=== PATIENT | female | born 1980 | race Two or more races ===

== ENCOUNTER 2020-06-03 12:29 | Day surgery (SDC) | payer SELFPAY ==
[2020-06-03] MEDS ORDERED: Lidocaine 1% 4 ML ONE (12:45)
[2020-06-03] MEDS ORDERED: Lactated Ringers 1,000 ML IV SCH (12:45)
[2020-06-03] MEDS ORDERED: Rocuronium 50 MG/5 ML Vial ONE (12:45)
[2020-06-03] MEDS ORDERED: fentaNYL 250 MCG/5 ML SDV ONE (12:45)
[2020-06-03] MEDS ORDERED: Ondansetron 4 MG/2 ML SDV ONE ×2 (12:45→14:23)
[2020-06-03] MEDS ORDERED: Midazolam 1 MG/ML 2 ML SDV ONE (12:45)
[2020-06-03] MEDS ORDERED: Propofol 200 MG/20 ML SDV ONE (12:46)
--- NOTE | 2020-06-03 13:05 | PCM.PREANE ---
Preanesthetic Assessment - Procedure Proposed Procedure: lap appy - Anesthesia/Transfusion/Family Hx Anesthesia History: Prior Anesthesia Without Reaction Family History of Anesthesia Reaction: No Transfusion History: No Prior Transfusion(s) - Review of Systems General: Fever (weekend- temp 100) Pulmonary: No Symptoms Cardiovascular: No Symptoms Gastrointestinal: Abdominal Pain (since wednesday. ), Decreased Appetite, Vomiting (for 2 days- none yesterday) Neurological: No Symptoms Other: Reports: None - Physical Assessment NPO Status Date: 06/03/20 NPO Status Time: 11:30 (16 oz water-otherwise npo) Vital Signs: 115/88 95 100% 16 99.4 Height: 5 ft 6 in Weight: 71.7 kg ASA Class: 1E Mental Status: Alert & Oriented x3 Airway Class: Mallampati = 1 Dentition: Reports: Normal Dentition Thyro-Mental Finger Breadths: 3 Mouth Opening Finger Breadths: 3 ROM/Head Extension: Full Lungs: Clear to Auscultation, Normal Respiratory Effort Cardiovascular: Regular Rate, Regular Rhythm - Blood Blood Available: No - Acknowledgements Anesthesia Type Planned: General Anesthesia Pt an Appropriate Candidate for the Planned Anesthesia: Yes Alternatives and Risks of Anesthesia Discussed w Pt/Guardian: Yes Pt/Guardian Understands and Agrees with Anesthesia Plan: Yes PreAnesthesia Questionnaire Cardiovascular History: Reports: None Respiratory History: Reports: None Gastrointestinal History: Reports: Other (See Below) (abd pain this weekend) Musculoskeletal History: Reports: None Psychiatric History: Reports: None Endocrine/Metabolic History: Reports: None Oncologic (Cancer) History: Reports: None - Past Surgical History Female Surgical History: Reports: Section (times 2) - SUBSTANCE USE Tobacco Use Status *Q: Never Tobacco User Tobacco Use Within Last Twelve Months: No Second Hand Smoke Exposure: No Days Per Week of Alcohol Use: 0 Recreational Drug Use History: No - CURRENT (IN HOUSE) MEDS Current Meds: Current Medications Discontinued Medications Fentanyl (Sublimaze) Confirm Administered Dose 250 mcg .ROUTE .STK-MED ONE Stop: 06/03/20 12:46 Lidocaine HCl (Xylocaine-Mpf 1%) Confirm Administered Dose 4 mls @ as directed .ROUTE .STK-MED ONE Stop: 06/03/20 12:46 Midazolam HCl (Versed 1 Mg/Ml) Confirm Administered Dose 2 mg .ROUTE .STK-MED ONE Stop: 06/03/20 12:46 Ondansetron HCl (Zofran) Confirm Administered Dose 4 mg .ROUTE .STK-MED ONE Stop: 06/03/20 12:46 Propofol (Diprivan 20 Ml) Confirm Administered Dose 200 mg .ROUTE .STK-MED ONE Stop: 06/03/20 12:47 Rocuronium Luke (Zemuron) Confirm Administered Dose 50 mg .ROUTE .STK-MED ONE Stop: 06/03/20 12:46
[2020-06-03] MEDS ORDERED: Sodium Chloride 0.9% 10 ML Syringe FLUSH PRN (13:11)
[2020-06-03] MEDS ORDERED: Citric Acid/Sodium Citrate Solution 30 ML Cup ONE (13:11)
[2020-06-03] MEDS ORDERED: Metoclopramide 10 MG/2 ML SDV ONE (13:11)
[2020-06-03] MEDS ORDERED: Bupivacaine 0.5%/EPINEPHrine 1:200,000 50 ML MDV ONE (13:13)
[2020-06-03] MEDS ORDERED: cefOXitin 2 GM in Premix Bag 1 BAG IV ONE (13:30)
--- NOTE | 2020-06-03 13:39 | PCM.HP.2 ---
H&P History of Present Illness - General Date of Service: 06/03/20 Admit Problem/Dx: appendicitis Source of Information: Patient History Limitations: Reports: No Limitations - History of Present Illness Initial Comments - Free Text/Narative: Mrs. Ny is sent from [facility] today with findings of acute appendicitis. She developed abdominal pain three days ago which has gotten worse over the weekend. She reports low grade fever, anorexia, nausea, and pain in the lower abdomen. She has never had this pain before. She is otherwise healthy; surgical history significant only for Caesarian section. WBC 14.[address] scan shows appendicitis without free fluid or abscess. - Related Data Allergies/Adverse Reactions: Allergies Allergy/AdvReac Type Severity Reaction Status Date / Time No Known Allergies Allergy Verified 06/03/20 13:10 Home Medications: Home Meds . [No Known Home Meds] 06/03/20 [History] Past Medical History - Past Health History Medical/Surgical History: Denies Medical/Surgical History Cardiovascular History: Reports: None Respiratory History: Reports: None Gastrointestinal History: Reports: Other (See Below) (abd pain this weekend) Musculoskeletal History: Reports: None Psychiatric History: Reports: None Endocrine/Metabolic History: Reports: None Oncologic (Cancer) History: Reports: None - Past Surgical History Female Surgical History: Reports: Section (times 2) Social & Family History - Tobacco Use Tobacco Use Status *Q: Never Tobacco User Second Hand Smoke Exposure: No - Caffeine Use Caffeine Use: Reports: Coffee - Alcohol Use Days Per Week of Alcohol Use: 0 - Recreational Drug Use Recreational Drug Use: No H&P Review of Systems - Review of Systems: Review Of Systems: See Below General: Reports: Fever, Malaise HEENT: Reports: No Symptoms Pulmonary: Reports: No Symptoms Cardiovascular: Reports: No Symptoms Gastrointestinal: Reports: Abdominal Pain, Anorexia, Decreased Appetite, Flatus, Nausea Genitourinary: Reports: No Symptoms Musculoskeletal: Reports: No Symptoms Skin: Reports: No Symptoms Psychiatric: Reports: No Symptoms Neurological: Reports: No Symptoms Hematologic/Lymphatic: Reports: No Symptoms Immunologic: Reports: No Symptoms Exam - Exam Exam: See Below - Vital Signs Vital Signs: Last Vital Signs Temp 37.4 C 06/03/20 12:45 Pulse 95 06/03/20 12:45 Resp 16 06/03/20 12:45 BP 115/88 06/03/20 12:45 Pulse Ox 100 06/03/20 12:45 Weight: 71.7 kg - Exam General: Alert, Oriented, Cooperative HEENT: Conjunctiva Clear Neck: Supple, Trachea Midline Lungs: Clear to Auscultation, Normal Respiratory Effort Cardiovascular: Regular Rate, Regular Rhythm GI/Abdominal Exam: Soft, No Mass, Tender, Other (McBurney point tenderness) Extremities: Normal Inspection Skin: Warm, Dry Neuro Extensive - Mental Status: Alert, Oriented x3 Psychiatric: Normal Mood Sepsis Event Note - Focused Exam Vital Signs: Vital Signs Temp Pulse Resp BP Pulse Ox 06/03/20 12:45 37.4 C 95 16 115/88 100 Problem List Initiated/Reviewed/Updated: Yes Orders Last 24hrs: Active Orders 24 hr Category Date Time Status Peripheral IV Care [RC] . DIRECTED Care 06/03/20 13:11 Active Verify Patient Consent Obtain [RC] ASDIRECTED Care 06/03/20 12:45 Active CORONAVIRUS COVID-19 SANDRA [MOLEC] Stat Lab 06/03/20 12:44 Ordered Lactated Ringers [Ringers, Lactated] 1,000 ml Med 06/03/20 12:45 Active IV ASDIRECTED Sodium Chloride 0.9% [Saline Flush] Med 06/03/20 13:11 Active 10 ml FLUSH ASDIRECTED PRN cefOXitin [Mefoxin in Dextrose,Iso-Osm 2 GM/50 ML] 2 gm Med 06/03/20 13:30 Active Premix Bag 1 bag IV ONETIME Peripheral IV Insertion Adult [OM.PC] Routine Oth 06/03/20 12:45 Ordered Medication Orders Lactated Ringer's (Ringers, Lactated) 1,000 mls @ 125 mls/hr IV ASDIRECTED [facility] Last Admin: 06/03/20 12:50 Dose: 125 mls/hr Documented by: JASON Cefoxitin Sodium 2 gm/ Premix 50 mls @ 100 mls/hr IV ONETIME ONE Stop: 06/03/20 13:59 Last Admin: 06/03/20 13:28 Dose: 100 mls/hr Documented by: JASON Sodium Chloride (Saline Flush) 10 ml FLUSH ASDIRECTED PRN PRN Reason: Keep Vein Open Assessment/Plan Comment:: Acute appendicitis Plan for laparoscopic appendectomy and anticipate discharge to home from recovery unit. - Mortality Measure Prognosis:: Good
[2020-06-03] MEDS ORDERED: Succinylcholine/Sod PF 100 MG/5 ML SYRINGE IV ONE (14:04)
[2020-06-03] MEDS ORDERED: HYDROmorphone 1 MG/ML Syringe ONE (14:27)
[2020-06-03] MEDS ORDERED: fentaNYL 100 MCG/2 ML SDV IVPUSH PRN (14:35)
[2020-06-03] MEDS ORDERED: HYDROmorphone 0.5 MG/0.5 ML Syringe IVPUSH PRN (14:35)
--- NOTE | 2020-06-03 15:18 | PCM.POSTAN ---
POST ANESTHESIA ASSESSMENT - MENTAL STATUS Mental Status: Somnolent - VITAL SIGNS Vital Signs: Last Vital Signs Temp 97.5 F 06/03/20 15:06 Pulse 98 06/03/20 15:06 Resp 19 06/03/20 15:06 BP 101/50 L 06/03/20 15:06 Pulse Ox 98 06/03/20 15:06 - RESPIRATORY Respiratory Status: Respiratory Rate WNL, Airway Patent, O2 Saturation Stable - CARDIOVASCULAR CV Status: Pulse Rate WNL, Blood Pressure Stable - GASTROINTESTINAL GI Status: No Symptoms - PAIN Pain Score: 0 - POST OP HYDRATION Hydration Status: Adequate & Stable
--- NOTE | 2020-06-03 15:25 | PCM48HPAN ---
Post Anesthesia Note - EVALUATION WITHIN 48HRS OF ANESTHETIC Vital Signs in Normal Range: Yes Patient Participated in Evaluation: Yes Respiratory Function Stable: Yes Airway Patent: Yes Cardiovascular Function Stable: Yes Hydration Status Stable: Yes Pain Control Satisfactory: Yes Nausea and Vomiting Control Satisfactory: Yes Mental Status Recovered: Yes Vital Signs: Last Vital Signs Temp 36.2 C 06/03/20 15:20 Pulse 97 06/03/20 15:20 Resp 19 06/03/20 15:20 BP 104/56 L 06/03/20 15:20 Pulse Ox 97 06/03/20 15:20
--- NOTE | 2020-06-03 16:10 | PCM.PRNOTE ---
- Free Text/Narrative Note: Date: 06/03/2020 Operation: laparoscopic appendectomy Surgeon: Boo Park MD Antibiotic: 2 g cefoxitin IV EBL: 10 cc Findings: gangrenous appendicitis without rupture or abscess Detailed Report: The patient was taken to the OR and placed in supine position. Time out was performed and general endotracheal anesthesia initiated. The patient's left arm was tucked at her side. The abdomen was prepped and draped in usual sterile fashion. A Veress needle was placed at the left upper quadrant to establish pneumoperitoneum. Air was aspirated at the umbilicus, and a 12 mm bladed trocar was inserted just inferior to the umbilicus. A 5 mm 30 degree laparoscope was inserted and abdominal contents inspected. The patient was placed in Trendelenburg and rotated toward the surgeon on the patient's left side. Additional 5 mm ports were placed in the suprapubic area and left lower quadrant. The appendix was gangrenous and surrounding small bowel and mesentery was bluntly. There was no evidence of perforation. The base of the appendix was identified, and a window was made in the mesoappendix with the Mobitto ligasure at the cecum. A 30 mm white load was used to staple off the appendix at its base with the powered stapler. The appendix seems to just fall off on closing the stapler. However, the staple line at the cecum appeared to be intact. The mesoappendix was divided using the ligasure. The specimen was removed in an endocatch bag. The dissection field was suctioned dry. A tongue of omentum was used to reinforce the staple line and was sewn in place using intracorporeal suturing with 3-0 vicryl. The larger port site was closed at the level of fascia with 0 vicryl using the PMI laparoscopic suture passer. The other ports were removed under laparoscopic vision and bleeding was controlled with targeted monopolar energy. Pneumoperitoneum was released. Skin was closed at all sites with 4-0 vicryl at the level of skin and dressed with dermabond. The patient tolerated the procedure well.
== END 2020-06-03 21:15 | disposition home or self-care (01) ==
LOC: JD.SDS 12:29
PROVIDERS: ATTEND Surgery
DX: K35.891 Other acute appendicitis without perforation, with gangrene (principal); Z01.812 Encounter for preprocedural laboratory examination; Z20.822 Contact with and (suspected) exposure to COVID-19
CPT/HCPCS: 44970; 87635; A9270; J0330; J0694; J1170; J2250; J2405; J2704; J2765; J3010; J3490; J7120; 00840; J2710; U0002